=== PATIENT | male | born 1945 | race American Indian/Alaskan Native ===

== ENCOUNTER 2020-12-26 12:45 | Inpatient (IN) | payer MEDICARE ==
[2020-12-26] MEDS ORDERED: KETOROLAC 30 MG/1 ML INJ IV ONE (13:18)
[2020-12-26] MEDS ORDERED: HYDROmorphone 1 MG/1 ML INJ IV ONE (13:18)
[2020-12-26] MEDS ORDERED: ONDANSETRON 4 MG/2 ML INJ IV ONE (13:18)
--- NOTE | 2020-12-26 13:25 | Emergency Department Report ---
ED Fall HPI - General Stated Complaint: HIP PAIN Time Seen by Provider: 12/26/20 12:54 Source: patient Mode of arrival: Stretcher Limitations: No Limitations - History of Present Illness Initial Comments: 75-year-old male with a past medical history of bladder cancer (currently in remission), hypertension, elevated cholesterol, CAD with stent placement, and generalized joint pain presents to the hospital complaints of lower back pain and right hip pain since fall x1 week. 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 Since he has had several falls last fall last night. Patient is unsure if he passed out after recent fall. He is complaining of severe lower back and right hip pain worse with movement and palpation. Patient currently takes hydrocodone 5 mg without relief. Difficulty ambulating secondary to pain. He denies bowel or bladder incontinence. Patient was seen at [facility] yesterday had x-rays of the hip and back with without identifiable fracture. I received call from patient's PMD Dr. Garcia prior to patient's arrival expressing his concern of patient's debility and pain need for further work-up, treatment, and possible rehab placement Patient has orthopedic surgical history of metal plate in the neck, right hip replacement, left hip fusion, and bilateral knee replacements Bladder cancer was treated with resection. No history of chemoradiation. Has a scheduled cystoscopy appointment for December 29 - Related Data Home Medications Medication Instructions Recorded Confirmed Last Taken Amlodipine Besylate [Norvasc] 10 mg PO QDAY 12/26/20 12/26/20 12/26/20 AtorvaSTATin [Lipitor] 40 mg PO QHS 12/26/20 12/26/20 12/26/20 Gabapentin [Neurontin] 600 mg PO BID 12/26/20 12/26/20 12/26/20 HYDROcodone/APAP 10-325 [[place] 1 each PO Q8HR PRN 12/26/20 12/26/20 12/26/20 10/325] Metoprolol Xl [Metoprolol 50 mg PO QDAY 12/26/20 12/26/20 12/26/20 SUCCINATE ER TAB] Omeprazole Magnesium [PriLOSEC Otc] 20 mg PO QDAY 12/26/20 12/26/20 12/26/20 Tamsulosin [Flomax] 0.4 mg PO QDAY 12/26/20 12/26/20 12/26/20 lisinopriL [Zestril TAB] 40 mg PO QDAY 12/26/20 12/26/20 12/26/20 Allergies Allergy/AdvReac Type Severity Reaction Status Date / Time No Known Allergies Allergy Verified 12/26/20 12:59 ED Review of Systems ROS: Stated complaint: HIP PAIN Other details as noted in HPI Comment: All other systems reviewed and negative ED Past Medical Hx - Past Medical History Hx of Cancer: Yes (Bladder) - Surgical History Hx Coronary Stent: Yes Additional Surgical History: Bilateral knee replacement, left hip fusion, right hip replacement - Medications Home Medications: Home Medications Medication Instructions Recorded Confirmed Last Taken Type Amlodipine Besylate [Norvasc] 10 mg PO QDAY 12/26/20 12/26/20 12/26/20 History AtorvaSTATin [Lipitor] 40 mg PO QHS 12/26/20 12/26/20 12/26/20 History Gabapentin [Neurontin] 600 mg PO BID 12/26/20 12/26/20 12/26/20 History HYDROcodone/APAP 10-325 [[place] 1 each PO Q8HR PRN 12/26/20 12/26/20 12/26/20 History 10/325] Metoprolol Xl [Metoprolol 50 mg PO QDAY 12/26/20 12/26/20 12/26/20 History SUCCINATE ER TAB] Omeprazole Magnesium [PriLOSEC Otc] 20 mg PO QDAY 12/26/20 12/26/20 12/26/20 History Tamsulosin [Flomax] 0.4 mg PO QDAY 12/26/20 12/26/20 12/26/20 History lisinopriL [Zestril TAB] 40 mg PO QDAY 12/26/20 12/26/20 12/26/20 History ED Physical Exam - Other Other exam information: General: No acute distress Head: Atraumatic Eyes: normal appearance ENT: Moist mucous membranes Neck: Normal appearance, no midline tenderness Chest: Clear to auscultation bilaterally CV: Regular rate and rhythm Abdomen: Soft, normal bowel sounds, nontender, nondistended, no rebound or guarding Back: Normal inspection Extremity: Normal inspection, full range of motion Neuro: Alert O x 3, no facial asymmetry, speech clear, no gross motor sensory deficit Psych: Appropriate behavior Skin: No rash ED Course Vital Signs 12/26/20 12/26/20 12/26/20 12:56 12:59 13:00 Temperature 98.7 F Pulse Rate 52 L 49 L Respiratory 12 11 L Rate Blood Pressure 202/74 Blood Pressure 211/85 [Right] O2 Sat by Pulse 93 95 92 Oximetry 12/26/20 12/26/20 12/26/20 13:16 13:30 13:46 Temperature Pulse Rate 74 49 L 53 L Respiratory 13 16 17 Rate Blood Pressure 211/85 165/84 Blood Pressure [Right] O2 Sat by Pulse 96 93 91 Oximetry 12/26/20 12/26/20 13:50 14:14 Temperature Pulse Rate 55 L Respiratory 16 Rate Blood Pressure 165/84 Blood Pressure [Right] O2 Sat by Pulse 95 94 Oximetry - Reevaluation(s) Reevaluation #1: 12/26/20 15:22 Patient reports significant pain relief after receiving Dilaudid 0.5 mg and Toradol 15 mg IV ED Medical Decision Making - Lab Data Result diagrams: 12/26/20 13:45 12/26/20 13:45 Lab Results 12/26/20 12/26/20 12/26/20 Range/Units 13:45 13:45 14:04 WBC 5.2 (4.5-11.0) K/mm3 RBC 5.43 H (3.65-5.03) M/mm3 Hgb 14.2 (11.8-15.2) gm/dl Hct 42.3 (35.5-45.6) % MCV 78 L (84-94) fl MCH 26 L (28-32) pg MCHC 34 (32-34) % RDW 15.3 H (13.2-15.2) % Plt Count 143 (140-440) K/mm3 Lymph % (Auto) 30.6 (13.4-35.0) % [place] % (Auto) 8.2 H (0.0-7.3) % Eos % (Auto) 4.8 H (0.0-4.3) % Baso % (Auto) 0.9 (0.0-1.8) % Lymph # (Auto) 1.6 (1.2-5.4) K/mm3 [place] # (Auto) 0.4 (0.0-0.8) K/mm3 Eos # (Auto) 0.3 (0.0-0.4) K/mm3 Baso # (Auto) 0.0 (0.0-0.1) K/mm3 Seg Neutrophils % 55.5 (40.0-70.0) % Seg Neutrophils # 2.9 (1.8-7.7) K/mm3 Sodium 135 L (137-145) mmol/L Potassium 4.1 (3.6-5.0) mmol/L Chloride 98.7 (98-107) mmol/L Carbon Dioxide 22 (22-30) mmol/L Anion Gap 18 mmol/L BUN 15 (9-20) mg/dL Creatinine 0.8 (0.8-1.3) mg/dL Estimated GFR > 60 ml/min BUN/Creatinine Ratio 19 % Glucose 98 (75-100) mg/dL Calcium 8.9 (8.4-10.2) mg/dL Total Bilirubin 1.60 H (0.1-1.2) mg/dL AST 19 (5-40) units/L ALT 16 (7-56) units/L Alkaline Phosphatase 141 H (35-129) units/L Total Creatine Kinase 187 H (55-170) units/L Total Protein 7.6 (6.3-8.2) g/dL Albumin 3.7 L (3.9-5) g/dL Albumin/Globulin Ratio 0.9 % Urine Color Yellow (Yellow) Urine Turbidity Clear (Clear) Urine pH 6.0 (5.0-7.0) Ur Specific [place] 1.010 (1.003-1.030) Urine Protein 100 mg/dl (Negative) mg/dL Urine Glucose (UA) Negative (Negative) mg/dL Urine Ketones Trace (Negative) mg/dL Urine Blood Small A (Negative) Urine Nitrite Negative (Negative) Ur Reducing Substances Not Reportable Urine Bilirubin Negative (Negative) Urine Ictotest Not Reportable Urine Urobilinogen Not Reportable Ur Leukocyte Esterase Negative (Negative) Urine WBC (Auto) 1.0 (0.0-6.0) /HPF Urine RBC (Auto) 2.0 (0.0-6.0) /HPF U Epithel Cells (Auto) < 1.0 (0-13.0) /HPF Urine Mucus Few /HPF - Radiology Data Radiology results: report reviewed CT HEAD WITHOUT CONTRAST INDICATION / CLINICAL INFORMATION: fall, loc. TECHNIQUE: All CT scans at this location are performed using CT dose reduction for ALARA by means of automated exposure control. COMPARISON: None available. FINDINGS: HEMORRHAGE: None. EXTRA-AXIAL SPACES: Mildly prominent likely related to cortical atrophy. VENTRICULAR SYSTEM: Normal in size and morphology for the patient's age. CEREBRAL PARENCHYMA: There are periventricular hypodensities consistent with microvascular ischemic change. No acute territorial infarct. MIDLINE SHIFT / HERNIATION: None. CEREBELLUM / BRAINSTEM: No significant abnormality. ORBITS: Normal as visualized SOFT TISSUES: No significant abnormality. SKULL: No significant abnormality. PARANASAL SINUSES / MASTOID AIR CELLS: Normal as visualized ADDITIONAL FINDINGS: None. IMPRESSION: 1. No acute intracranial abnormality in the setting of senescent changes. CT LUMBAR SPINE WITHOUT CONTRAST INDICATION / CLINICAL INFORMATION: back pain s/p fall. TECHNIQUE: Axial CT images were obtained through the lumbar spine. Sagittal and coronal reformatted images were produced. All CT scans at this location are performed using CT dose reduction for ALARA by means of automated exposure control. COMPARISON: None available. FINDINGS: VERTEBRAE: Prominent osteophytes are scattered throughout the lumbar spine. The right lateral superior osteophyte of L1 is fractured without displacement. ALIGNMENT: There is a slight dextroconvex curvature of the lumbar spine. There is minimal retrolisthesis of L1 on L2 and L2 on L3. DISC SPACES: There is scattered degenerative disc disease throughout the lumbar spine with near- complete disc height loss at L2-L3, L1-L2. There is also degenerative disc disease at T12-L1 greater than L3-L4 greater than L4-L5. FACET JOINTS: There is marked degenerative facet disease throughout the lumbar spine, most pronounced at L5-S1. SPINAL CANAL: No significant abnormality. SACRUM:No significant abnormality of the visualized sacrum. PARASPINAL SOFT TISSUES: No significant abnormality. ADDITIONAL FINDINGS: None. IMPRESSION: 1. There is a nondisplaced fracture through an osteophyte involving the right superolateral endplate of L1. Otherwise no acute fracture. 2. Scattered degenerative disc and facet disease as above. CT PELVIS WITHOUT CONTRAST INDICATION / CLINICAL INFORMATION: right hip pain s/p fall. TECHNIQUE: Axial CT images were obtained through the pelvis without contrast. All CT scans at this location are performed using CT dose reduction for ALARA by means of automated exposure control. COMPARISON: None available. FINDINGS: BOWEL: No significant abnormality. APPENDIX: No significant abnormality. PERITONEUM: No free fluid. No free air. No fluid collection. LYMPH NODES: No significant adenopathy. ARTERIES: Moderate atherosclerotic calcification without acute abnormality. VEINS: No significant abnormality. URINARY BLADDER: No significant abnormality. REPRODUCTIVE ORGANS: No significant abnormality. ADDITIONAL FINDINGS: None SKELETAL SYSTEM: No acute osseous abnormality. There is complete osseous fusion of the left femoral acetabular joint. Patient is status post right total hip arthroplasty. There is scattered degenerative disc and facet disease of the lower lumbar spine. IMPRESSION: 1. No acute abnormality of the pelvis. 2. Other findings as above. - Medical Decision Making 75-year-old male presents to the hospital with 1 week of severe back pain with difficulty ambulating and frequent falls. Pain started after initial trip and fall while pressure washing [address] head, pelvis, and lumbar spine were performed. CT lumbar spine significant for significant degenerative changes including a nondisplaced L1 osteophyte fracture. Patient taking hydrocodone 5 mg at home without improvement. Labs and urine unremarkable with exception of hematuria which is likely chronic given patient's history of bladder cancer. He is scheduled for outpatient work-up. Cystoscopy with his urologist. Patient will be admitted to the hospital service for further management. No acute neurologic findings on examination. Dr. Garcia updated regarding results. Hospitalist informed for admission Critical Care Time: No Critical care attestation.: If time is entered above; I have spent that time in minutes in the direct care of this critically ill patient, excluding procedure time. ED Disposition Clinical Impression: Disc degeneration, lumbar, Right hip pain, Intractable back pain L1 vertebral fracture Qualifiers: Encounter type: subsequent encounter Fracture type: closed Fracture morphology: other fracture Disposition: 09 ADMITTED INPATIENT Is pt being admited?: Yes Condition: Stable Referrals: PRIMARY CARE, [Primary Care Provider] - 3-5 Days Time of Disposition: 15:14 (Dr Killian/hospitalist)
[2020-12-26 14:20] LABS: Alanine Aminotransferase 16 units/L (7-56); Albumin 3.7 g/dL (3.9-5); BUN/Creatinine Ratio 19; Blood Urea Nitrogen 15 mg/dL (9-20); Calcium 8.9 mg/dL (8.4-10.2); Hemolysis Index 9
--- NOTE | 2020-12-26 14:31 | Cat Scan Report ---
CT HEAD WITHOUT CONTRAST INDICATION / CLINICAL INFORMATION: fall, loc. TECHNIQUE: All CT scans at this location are performed using CT dose reduction for ALARA by means of automated exposure control. COMPARISON: None available. FINDINGS: HEMORRHAGE: None. EXTRA-AXIAL SPACES: Mildly prominent likely related to cortical atrophy. VENTRICULAR SYSTEM: Normal in size and morphology for the patient's age. CEREBRAL PARENCHYMA: There are periventricular hypodensities consistent with microvascular ischemic c hange. No acute territorial infarct. MIDLINE SHIFT / HERNIATION: None. CEREBELLUM / BRAINSTEM: No significant abnormality. ORBITS: Normal as visualized SOFT TISSUES: No significant abnormality. SKULL: No significant abnormality. PARANASAL SINUSES / MASTOID AIR CELLS: Normal as visualized ADDITIONAL FINDINGS: None. IMPRESSION: 1. No acute intracranial abnormality in the setting of senescent changes. Signer Name: Yuri Blackburn DO Signed: 12/26/2020 2:27 PM Workstation Name: [id number]
[2020-12-26 14:38] LABS: Hematocrit 42.3 % (35.5-45.6); Hemoglobin 14.2 gm/dl (11.8-15.2); Mean Corpuscular HGB Conc 34 % (32-34); Mean Corpuscular Volume 78 fl (84-94); Red Blood Count 5.43 M/mm3 (3.65-5.03); Red Cell Distribution Width 15.3 % (13.2-15.2)
[2020-12-26 14:39] LABS: Basophils % (Auto) 0.9 % (0.0-1.8); Eosinophils # (Auto) 0.3 K/mm3 (0.0-0.4); Eosinophils % (Auto) 4.8 % (0.0-4.3); Lymphocytes # (Auto) 1.6 K/mm3 (1.2-5.4); Lymphocytes % (Auto) 30.6 % (13.4-35.0); Monocytes # (Auto) 0.4 K/mm3 (0.0-0.8); Monocytes % (Auto) 8.2 % (0.0-7.3); Platelet Count 143 K/mm3 (140-440)
--- NOTE | 2020-12-26 14:53 | Cat Scan Report ---
CT LUMBAR SPINE WITHOUT CONTRAST INDICATION / CLINICAL INFORMATION: back pain s/p fall. TECHNIQUE: Axial CT images were obtained through the lumbar spine. Sagittal and coronal reformatted i mages were produced. All CT scans at this location are performed using CT dose reduction for ALARA by means of automated exposure control. COMPARISON: None available. FINDINGS: VERTEBRAE: Prominent osteophytes are scattered throughout the lumbar spine. The right lateral superio r osteophyte of L1 is fractured without displacement. ALIGNMENT: There is a slight dextroconvex curvature of the lumbar spine. There is minimal retrolisthe sis of L1 on L2 and L2 on L3. DISC SPACES: There is scattered degenerative disc disease throughout the lumbar spine with near-compl ete disc height loss at L2-L3, L1-L2. There is also degenerative disc disease at T12-L1 greater than L3-L4 greater than L4-L5. FACET JOINTS: There is marked degenerative facet disease throughout the lumbar spine, most pronounced at L5-S1. SPINAL CANAL: No significant abnormality. SACRUM:No significant abnormality of the visualized sacrum. PARASPINAL SOFT TISSUES: No significant abnormality. ADDITIONAL FINDINGS: None. IMPRESSION: 1. There is a nondisplaced fracture through an osteophyte involving the right superolateral endplate of L1. Otherwise no acute fracture. 2. Scattered degenerative disc and facet disease as above. Signer Name: Yuri Blackburn DO Signed: 12/26/2020 2:48 PM Workstation Name: [id number]
[2020-12-26 14:54] LABS: Mucus,Urine FEW /HPF
--- NOTE | 2020-12-26 14:55 | Cat Scan Report ---
CT PELVIS WITHOUT CONTRAST INDICATION / CLINICAL INFORMATION: right hip pain s/p fall. TECHNIQUE: Axial CT images were obtained through the pelvis without contrast. All CT scans [facility] are performed using CT dose reduction for ALARA by means of automated exposure control. COMPARISON: None available. FINDINGS: BOWEL: No significant abnormality. APPENDIX: No significant abnormality. PERITONEUM: No free fluid. No free air. No fluid collection. LYMPH NODES: No significant adenopathy. ARTERIES: Moderate atherosclerotic calcification without acute abnormality. VEINS: No significant abnormality. URINARY BLADDER: No significant abnormality. REPRODUCTIVE ORGANS: No significant abnormality. ADDITIONAL FINDINGS: None SKELETAL SYSTEM: No acute osseous abnormality. There is complete osseous fusion of the left femoral a cetabular joint. Patient is status post right total hip arthroplasty. There is scattered degenerative disc and facet disease of the lower lumbar spine. IMPRESSION: 1. No acute abnormality of the pelvis. 2. Other findings as above. Signer Name: Yuri Blackburn DO Signed: 12/26/2020 2:51 PM Workstation Name: [id number]
[2020-12-26 15:08] LABS: Bilirubin,Urine Negative (Negative); Blood,Urine Small (Negative); Color,Urine Yellow (Yellow)
--- NOTE | 2020-12-26 15:17 | History and Physical Report ---
History of Present Illness Chief complaint: My back hurts so bad History of present illness: 75 YO Male with Bladder Cancer, HTN, HLD, CAD S/P Stent Placement, BPH, OA, GERD, Obesity, Chronic Pain Syndrome presents to ED for evaluation. Patient reports "my back hurts so bad". Patient states that he has experienced severe low back pain over the past 1 week with persistent and worsening symptoms over the same timeframe. Patient states that symptoms began shortly after a fall 1 week ago. Patient has experienced multiple falls during the ensuing week. Patient said that pain is 10/10, constant, worsened with ambulation, relieved with rest. Radiates down the leg. Patient is currently bedbound, nonambulatory, and unable to bear weight due to the pain. EMS was notified and upon arrival the patient was found to be in distress and subsequently transported to [facility] for further care and evaluation of the aforementioned symptoms. The patient was seen and evaluated in the emergency department. All lab and imaging studies reviewed. Patient found to have a lumbar spine fracture. Patient admitted to medical floor due to increased risk of worsening symptoms. Patient initiated on pain management protocol. No reports of fever, chills, chest pain, palpitation, unilateral leg swelling, calf pain, prolonged t ravel, shortness of breath, individual/family history of DVT/PE/bleeding/blood clotting disorders, or known exposure to COVID-19. No prior admission for review. All medication listed at time of admission has been reconciled. Advanced care planning conducted in ED. Past History Past Medical History: arthritis, CAD, cancer, GERD, hypertension, hyperlipidemia Past Surgical History: total hip replacement, total knee replacement Social history: , lives with family. denies: smoking, alcohol abuse, p rescription drug abuse Family history: diabetes, hypertension Medications and Allergies Allergies Allergy/AdvReac Type Severity Reaction Status Date / Time No Known Allergies Allergy Verified 12/26/20 12:59 Home Medications Medication Instructions Recorded Confirmed Last Taken Type Amlodipine Besylate [Norvasc] 10 mg PO QDAY 12/26/20 12/26/20 12/26/20 History AtorvaSTATin [Lipitor] 40 mg PO QHS 12/26/20 12/26/20 12/26/20 History Gabapentin [Neurontin] 600 mg PO BID 12/26/20 12/26/20 12/26/20 History HYDROcodone/APAP 10-325 [[place] 1 each PO Q8HR PRN 12/26/20 12/26/20 12/26/20 History 10/325] Metoprolol Xl [Metoprolol 50 mg PO QDAY 12/26/20 12/26/20 12/26/20 History SUCCINATE ER TAB] Omeprazole Magnesium [PriLOSEC Otc] 20 mg PO QDAY 12/26/20 12/26/20 12/26/20 History Tamsulosin [Flomax] 0.4 mg PO QDAY 12/26/20 12/26/20 12/26/20 History lisinopriL [Zestril TAB] 40 mg PO QDAY 12/26/20 12/26/20 12/26/20 History Review of Systems Constitutional: weakness, no weight loss, no weight gain, no fever, no chills Ears, nose, mouth and throat: no ear pain, no ear discharge, no decreased hea ring Cardiovascular: no chest pain, no palpitations, no edema, no syncope Respiratory: no cough, no cough with sputum, no hemoptysis, no shortness of breath Gastrointestinal: no abdominal pain, no nausea, no vomiting, no constipation, no change in bowel habits Genitourinary Male: no hematuria, no flank pain, no discharge, no urinary frequency, no urinary hesitancy Rectal: no pain, no incontinence, no bleeding Musculoskeletal: shooting leg pain, limitation of motion, frequent falls, arthritis, other (Back pain), no neck stiffness, no neck pain, no shooting arm pain Integumentary: no rash, no pruritis, no redness, no sores, no wounds Neurological: no head injury, no transient paralysis, no weakness, no parathesias, no numbness, no tingling, no seizures Psychiatric: no anxiety, no change in sleep habits, no sleep disturbances, no change in appetite, no change in libido, no suicidal ideation Endocrine: no cold intolerance, no polyphagia, no polydipsia, no nocturia, no excessive sweating Hematologic/Lymphatic: no easy bruising, no easy bleeding, no lymphadenopathy Allergic/Immunologic: no urticaria, no allergic rhinitis, no wheezing, no persistent infections, no angioedema Exam - Constitutional Vitals: Temp Pulse Resp BP Pulse Ox 98.7 F 55 L 16 165/84 94 12/26/20 12:59 12/26/20 14:14 12/26/20 14:14 12/26/20 14:14 12/26/20 14:14 General appearance: Present: mild distress, obese - EENT Eyes: Present: PERRL ENT: hearing intact, clear oral mucosa - Neck Neck: Present: supple, normal ROM - Respiratory Respiratory effort: normal Respiratory: bilateral: CTA - Cardiovascular Heart Sounds: Present: S1 & S2. Absent: rub, click - Extremities Extremities: pulses symmetrical, No edema Extremity abnormal: tenderness (Lumbar spine tenderness) Peripheral Pulses: within normal limits - Abdominal General gastrointestinal: Present: soft, non-tender, non-distended, normal bowel sounds Male genitourinary: Present: normal - Integumentary Integumentary: Present: clear, warm, dry - Musculoskeletal Musculoskeletal: generalized weakness - Psychiatric Psychiatric: appropriate mood/affect, intact judgment & insight - Neurologic Neurologic: CNII-XII intact, moves all extremities, no gait normal Results - Labs CBC & Chem 7: 12/26/20 13:45 12/26/20 13:45 Labs: Abnormal lab results 12/26/20 12/26/20 12/26/20 Range/Units 13:45 13:45 14:04 RBC 5.43 H (3.65-5.03) M/mm3 MCV 78 L (84-94) fl MCH 26 L (28-32) pg RDW 15.3 H (13.2-15.2) % [place] % (Auto) 8.2 H (0.0-7.3) % Eos % (Auto) 4.8 H (0.0-4.3) % Sodium 135 L (137-145) mmol/L Total Bilirubin 1.60 H (0.1-1.2) mg/dL Alkaline Phosphatase 141 H (35-129) units/L Total Creatine Kinase 187 H (55-170) units/L Albumin 3.7 L (3.9-5) g/dL Urine Blood Small A (Negative) Assessment and Plan - Patient Problems (1) L1 vertebral fracture Current Visit: Yes Status: Acute Qualifiers: Encounter type: subsequent encounter Fracture type: closed Fracture morphology: other fracture Plan to address problem: Lumbar spine x-ray, pain management, supportive care, LSO brace after physical therapy feeding, supportive care. Case management consult for snf facility/rehab placement. (2) Obesity Current Visit: Yes Status: Acute Qualifiers: Body mass index: BMI 31.0-31.9 Plan to address problem: Balanced diet, increase physical activity at discharge, outpatient pulmonary follow-up as outpatient for sleep study. (3) Debility Current Visit: Yes Status: Acute Plan to address problem: Physical therapy consulted, supportive care, pain management. (4) Intractable back pain Current Visit: Yes Status: Acute Plan to address problem: Pain management protocol, supportive care, LSO brace as per physical therapy (5) Hypertension Current Visit: Yes Status: Acute Qualifiers: Hypertension type: primary hypertension Qualified Code(s): I10 - Essential (primary) hypertension Plan to address problem: Monitor blood pressure every shift, continue medical management. (6) Hyperlipidemia Current Visit: Yes Status: Acute Qualifiers: Hyperlipidemia type: mixed hyperlipidemia Qualified Code(s): E78.2 - Mixed hyperlipidemia Plan to address problem: Low-cholesterol diet, supportive care, lipid panel as outpatient. (7) GERD (gastroesophageal reflux disease) Current Visit: Yes Status: Acute Qualifiers: Esophagitis presence: without esophagitis Qualified Code(s): K21.9 - Gastro-esophageal reflux disease without esophagitis Plan to address problem: PPI therapy, supportive care (8) Chronic pain syndrome Current Visit: Yes Status: Acute Plan to address problem: Pain assessment as per routine, continue pain management as per protocol. (9) DVT prophylaxis Current Visit: Yes Status: Acute Plan to address problem: SCD to bilateral lower extremities while in bed, prophylactic anticoagulation (10) Advance care planning Current Visit: Yes Status: Acute Plan to address problem: Disease education conducted, care plan discussed, diagnoses discussed, prognosis discussed, patient is full code, patient and his knowledge understanding and agreement with care plan, +30 minutes.
[2020-12-26] MEDS ORDERED: ACETAMINOPHEN 325 MG TAB PO PRN (15:20)
[2020-12-26] MEDS ORDERED: HYDROmorphone 1 MG/1 ML INJ IV PRN (15:20)
[2020-12-26] MEDS ORDERED: ONDANSETRON 4 MG/2 ML INJ IV PRN (15:20)
[2020-12-26] MEDS: GABAPENTIN 300 MG CAP PO SCH (21:20)
[2020-12-26] MEDS: FAMOTIDINE 20 MG TAB PO SCH (21:20)
[2020-12-26] MEDS: HEPARIN 5,000 UNIT/1 ML VIAL SUB-Q SCH (21:20)
[2020-12-26] MEDS: hydrALAZINE 20 MG/1 ML INJ IV PRN (21:29)
[2020-12-26] MEDS: oxyCODONE /ACETAMINOPHEN 5-325MG TAB PO PRN (21:34)
[2020-12-26] MEDS ORDERED: NON-FORMULARY EACH (Gabapentin [Neurontin] 600 MG Tablet) PO SCH (22:00)
[2020-12-27] MEDS: hydrALAZINE 20 MG/1 ML INJ IV PRN (06:32)
[2020-12-27 07:01] LABS: BUN/Creatinine Ratio 23; Blood Urea Nitrogen 21 mg/dL (9-20); Calcium 8.5 mg/dL (8.4-10.2); Hemolysis Index 9
[2020-12-27] MEDS: HYDROcodone/ACETAMINOPHEN 10-325MG TAB PO PRN ×2 (09:14→22:55)
[2020-12-27] MEDS: FAMOTIDINE 20 MG TAB PO SCH ×2 (09:16→21:32)
[2020-12-27] MEDS: METOPROLOL SUCCINATE XL 50 MG TAB PO SCH (09:16)
[2020-12-27] MEDS: HEPARIN 5,000 UNIT/1 ML VIAL SUB-Q SCH ×2 (09:16→21:32)
[2020-12-27] MEDS: amLODIPine 5 MG TAB PO SCH (09:16)
[2020-12-27] MEDS: PANTOPRAZOLE 20 MG TAB PO SCH (09:16)
[2020-12-27] MEDS: GABAPENTIN 300 MG CAP PO SCH ×2 (09:16→21:32)
[2020-12-27] MEDS: TAMSULOSIN 0.4 MG CAP PO SCH (09:16)
[2020-12-27] MEDS: LISINOPRIL 40 MG TAB PO SCH (09:16)
[2020-12-27] MEDS ORDERED: NON-FORMULARY EACH (Omeprazole Magnesium [Prilosec Otc] 20 MG Tablet.Dr) PO SCH (10:00)
--- NOTE | 2020-12-27 17:03 | Magnetic Resonance Report ---
MRI LUMBAR SPINE 12/27/2020 INDICATION / CLINICAL INFORMATION: Low back pain, fall. COMPARISON: CT lumbar spine 12/26/2020 FINDINGS: GENERAL OBSERVATIONS: Unenhanced MR images of the lumbar spine were obtained. Diffuse degenerative disc and facet changes are present throughout the lumbar spine, superimposed on a developmentally narrow canal. There is right convex scoliosis centered at the thoracolumbar junctio n. On the prior CT scan, linear lucency was associated with a right osteophyte at the L1 level. At this level, there is some evidence of associated soft tissue edema, which may indicate that this is an acu te osteophyte fracture. This does not cause any impingement upon the canal or neural foramina in this location. [id number] ANALYSIS: L5-S1: Moderate diffuse disc bulging and facet degenerative changes, right greater than left. There i s significant right-sided foraminal narrowing. L4-5: Prominent diffuse disc bulging and facet degenerative changes result in severe central canal st enosis and bilateral foraminal narrowing, left greater than right. L2-3: Moderate diffuse disc bulging and facet degenerative changes are present resulting in severe ca nal stenosis. Bilateral foraminal narrowing is present, left greater than right. L2-3: Near-complete loss of disc space associated with disc bulging. Moderate central canal narrowing and bilateral foraminal encroachment. L1-2: Moderate diffuse disc bulging and mild facet degenerative changes. Moderately severe central ca nal narrowing. T12-L1: Moderate diffuse disc bulging. Right-sided foraminal narrowing. BONE MARROW: Extensive degenerative bone marrow signal changes throughout the lumbar spine. SPINAL CORD/CAUDA EQUINA: Distal spinal cord is unremarkable. IMPRESSION: 1. Prominent multilevel degenerative disc and facet changes as detailed above. 2. Soft tissue edema associated with the position of osteophyte linear lucency seen on CT scan from 1 02/26/2020. Signer Name: Fam Mcallister MD Signed: 12/27/2020 4:58 PM Workstation Name: [id number]
[2020-12-27] MEDS: oxyCODONE /ACETAMINOPHEN 5-325MG TAB PO PRN (17:09)
--- NOTE | 2020-12-27 17:42 | Progress Note ---
Assessment and Plan Assessment and plan: 75 YO Male with Bladder Cancer, HTN, HLD, CAD S/P Stent Placement, BPH, OA, GERD, Obesity, Chronic Pain Syndrome presents to ED for evaluation. Patient reports "my back hurts so bad". Patient states that he has experienced severe low back pain over the past 1 week with persistent and worsening symptoms over the same timeframe. Patient states that symptoms began shortly after a fall 1 week ago. Patient has experienced multiple falls during the ensuing week. Patient said that pain is 10/10, constant, worsened with ambulation, relieved with rest. Radiates down the leg. Patient is currently bedbound, nonambulatory, and unable to bear weight due to the pain. EMS was notified and upon arrival the patient was found to be in distress. Patient found to have a lumbar spine fracture. (1) lumbago with L1 vertebral fracture post fall 1 week ago Current Visit: Yes Status: Acute Qualifiers: Encounter type: subsequent encounter Fracture type: closed Fracture morphology: other fracture Plan to address problem: MRI, PT/OT evaluation and orthopedic consult ordered. Possible a candidate for vertebroplasty/kyphoplasty Continue current pain management (2) Obesity Current Visit: Yes Status: Acute Qualifiers: Body mass index: BMI 31.0-31.9 Plan to address problem: Balanced diet, increase physical activity at discharge, outpatient pulmonary follow-up as outpatient for sleep study. (3) history of CAD with stent Current Visit: Yes Status: Acute Plan to address problem: Clinically stable (4) history of bladder cancer, appears noninvasive Current Visit: Yes Status: Acute Plan to address problem: Being followed by urology (5) Hypertension Current Visit: Yes Status: Acute Qualifiers: Hypertension type: primary hypertension Qualified Code(s): I10 - Essential (primary) hypertension Plan to address problem: Monitor blood pressure every shift, continue medical management. (6) history of recurrent falls Patient reports losing balance/tripping causing falls. Recurrent but not very frequent. Fell twice during this month. PT/OT evaluation pending. Order MRI of lumbar spine. May need MRI of C-spine also. (7) GERD (gastroesophageal reflux disease) Current Visit: Yes Status: Acute Qualifiers: Esophagitis presence: without esophagitis Qualified Code(s): K21.9 - Gastro-esophageal reflux disease without esophagitis Plan to address problem: PPI therapy, supportive care (8) Chronic pain syndrome Current Visit: Yes Status: Acute Plan to address problem: Pain assessment as per routine, continue pain management as per protocol. (9) DVT prophylaxis Current Visit: Yes Status: Acute Plan to address problem: SCD to bilateral lower extremities while in bed, prophylactic anticoagulation Discussed with patient, nursing staff and home health care case manager History Interval history: Patient reports having low back pain without much radiation. Reports that this is new since felt related. Worse with ambulation. Patient denies no bladder or bowel dysfunction. MRI and orthopedic consult ordered. Hospitalist Physical - Constitutional Vitals: Temp Pulse Resp BP Pulse Ox 98.5 F 58 L 18 137/65 96 12/27/20 11:32 12/27/20 11:32 12/27/20 11:32 12/27/20 11:32 12/27/20 11:32 General appearance: Present: no acute distress, obese - EENT Eyes: Present: PERRL, EOM intact ENT: hearing decreased - Neck Neck: Present: supple - Respiratory Respiratory effort: normal Respiratory: bilateral: CTA, diminished - Cardiovascular Rhythm: regular - Extremities Extremities: No edema Extremity abnormal: other (Tender over L1. Left straight leg raising test is diminished.) - Abdominal General gastrointestinal: soft, non-tender - Integumentary Integumentary: Absent: rash - Psychiatric Psychiatric: appropriate mood/affect - Neurologic Neurologic: no focal deficits, other (Left straight leg raise test is dim inished) Results - Labs CBC & Chem 7: 12/26/20 13:45 12/27/20 06:18 Labs: Laboratory Last Values WBC 5.2 K/mm3 (4.5-11.0) 12/26/20 13:45 RBC 5.43 M/mm3 (3.65-5.03) H 12/26/20 13:45 Hgb 14.2 gm/dl (11.8-15.2) 12/26/20 13:45 Hct 42.3 % (35.5-45.6) 12/26/20 13:45 MCV 78 fl (84-94) L 12/26/20 13:45 MCH 26 pg (28-32) L 12/26/20 13:45 MCHC 34 % (32-34) 12/26/20 13:45 RDW 15.3 % (13.2-15.2) H 12/26/20 13:45 Plt Count 143 K/mm3 (140-440) 12/26/20 13:45 Lymph % (Auto) 30.6 % (13.4-35.0) 12/26/20 13:45 [place] % (Auto) 8.2 % (0.0-7.3) H 12/26/20 13:45 Eos % (Auto) 4.8 % (0.0-4.3) H 12/26/20 13:45 Baso % (Auto) 0.9 % (0.0-1.8) 12/26/20 13:45 Lymph # (Auto) 1.6 K/mm3 (1.2-5.4) 12/26/20 13:45 [place] # (Auto) 0.4 K/mm3 (0.0-0.8) 12/26/20 13:45 Eos # (Auto) 0.3 K/mm3 (0.0-0.4) 12/26/20 13:45 Baso # (Auto) 0.0 K/mm3 (0.0-0.1) 12/26/20 13:45 Seg Neutrophils % 55.5 % (40.0-70.0) 12/26/20 13:45 Seg Neutrophils # 2.9 K/mm3 (1.8-7.7) 12/26/20 13:45 Sodium 136 mmol/L (137-145) L 12/27/20 06:18 Potassium 4.2 mmol/L (3.6-5.0) 12/27/20 06:18 Chloride 100.2 mmol/L (98-107) 12/27/20 06:18 Carbon Dioxide 24 mmol/L (22-30) 12/27/20 06:18 Anion Gap 16 mmol/L 12/27/20 06:18 BUN 21 mg/dL (9-20) H 12/27/20 06:18 Creatinine 0.9 mg/dL (0.8-1.3) 12/27/20 06:18 Estimated GFR > 60 ml/min 12/27/20 06:18 BUN/Creatinine Ratio 23 % 12/27/20 06:18 Glucose 135 mg/dL (75-100) H 12/27/20 06:18 Calcium 8.5 mg/dL (8.4-10.2) 12/27/20 06:18 Total Bilirubin 1.60 mg/dL (0.1-1.2) H 12/26/20 13:45 AST 19 units/L (5-40) 12/26/20 13:45 ALT 16 units/L (7-56) 12/26/20 13:45 Alkaline Phosphatase 141 units/L (35-129) H 12/26/20 13:45 Total Creatine Kinase 187 units/L (55-170) H 12/26/20 13:45 Total Protein 7.6 g/dL (6.3-8.2) 12/26/20 13:45 Albumin 3.7 g/dL (3.9-5) L 12/26/20 13:45 Albumin/Globulin Ratio 0.9 % 12/26/20 13:45 Urine Color Yellow (Yellow) 12/26/20 14:04 Urine Turbidity Clear (Clear) 12/26/20 14:04 Urine pH 6.0 (5.0-7.0) 12/26/20 14:04 Ur Specific [place] 1.010 (1.003-1.030) 12/26/20 14:04 Urine Protein 100 mg/dl mg/dL (Negative) 12/26/20 14:04 Urine Glucose (UA) Negative mg/dL (Negative) 12/26/20 14:04 Urine Ketones Trace mg/dL (Negative) 12/26/20 14:04 Urine Blood Small (Negative) A 12/26/20 14:04 Urine Nitrite Negative (Negative) 12/26/20 14:04 Ur Reducing Substances Not Reportable 12/26/20 14:04 Urine Bilirubin Negative (Negative) 12/26/20 14:04 Urine Ictotest Not Reportable 12/26/20 14:04 Urine Urobilinogen Not Reportable 12/26/20 14:04 Ur Leukocyte Esterase Negative (Negative) 12/26/20 14:04 Urine WBC (Auto) 1.0 /HPF (0.0-6.0) 12/26/20 14:04 Urine RBC (Auto) 2.0 /HPF (0.0-6.0) 12/26/20 14:04 U Epithel Cells (Auto) < 1.0 /HPF (0-13.0) 12/26/20 14:04 Urine Mucus Few /HPF 12/26/20 14:04 [place]/IV: Voiding Method Urinal Active Medications - Current Medications Current Medications: Generic Name Dose Route Start Last Admin Trade Name Freq PRN Reason Stop Dose Admin Acetaminophen 650 mg 12/26/20 15:20 Acetaminophen 325 Mg Tab PO Q4H PRN Pain MILD(1-3)/Fever >100.5/RAPHAEL Hydrocodone Bitart/Acetaminophen 1 each 12/26/20 15:23 12/27/20 09:14 Hydrocodone/Acetaminophen 10-325mg Tab PO 1 each Q8HR PRN Administration PAIN Amlodipine Besylate 10 mg 12/27/20 10:00 12/27/20 09:16 Amlodipine 5 Mg Tab PO 10 mg QDAY JULIANNE Administration Atorvastatin Calcium 40 mg 12/26/20 22:00 12/26/20 21:21 Atorvastatin 40 Mg Tab PO 40 mg QHS JULIANNE Administration Famotidine 20 mg 12/26/20 22:00 12/27/20 09:16 Famotidine 20 Mg Tab PO 20 mg BID JULIANNE Administration Gabapentin 600 mg 12/26/20 22:00 12/27/20 09:16 Gabapentin 300 Mg Cap PO 600 mg BID JULIANNE Administration Heparin Sodium (Porcine) 5,000 unit 12/26/20 22:00 12/27/20 09:16 Heparin 5,000 Unit/1 Ml Vial SUB-Q 5,000 unit Q12HR JULIANNE Administration Hydralazine HCl 10 mg 12/26/20 20:16 12/27/20 06:32 Hydralazine 20 Mg/1 Ml Inj IV 10 mg Q6HR PRN Administration Hypertension Hydromorphone HCl 0.5 mg 12/26/20 15:20 12/26/20 19:30 Hydromorphone 1 Mg/1 Ml Inj IV 0.5 mg Q3H PRN Administration Pain , Severe (7-10) Lisinopril 40 mg 12/27/20 10:00 12/27/20 09:16 Lisinopril 40 Mg Tab PO 40 mg QDAY JULIANNE Administration Metoprolol Succinate 50 mg 12/27/20 10:00 12/27/20 09:16 Metoprolol Succinate Xl 50 Mg Tab PO 50 mg QDAY JULIANNE Administration Ondansetron HCl 4 mg 12/26/20 15:20 Ondansetron 4 Mg/2 Ml Inj IV Q8H PRN Nausea And Vomiting Oxycodone/Acetaminophen 1 tab 12/26/20 15:20 12/27/20 17:09 Oxycodone /Acetaminophen 5-325mg Tab PO 1 tab Q6H PRN Administration Pain, Moderate (4-6) Pantoprazole Sodium 20 mg 12/27/20 10:00 12/27/20 09:16 Pantoprazole 20 Mg Tab PO 20 mg QDAY JULIANNE Administration Sodium Chloride 10 ml 12/26/20 22:00 12/27/20 09:16 Sodium Chloride 0.9% 10 Ml Flush Syringe IV 10 ml BID JULIANNE Administration Sodium Chloride 10 ml 12/26/20 15:20 Sodium Chloride 0.9% 10 Ml Flush Syringe IV PRN PRN LINE FLUSH Tamsulosin HCl 0.4 mg 12/27/20 10:00 12/27/20 09:16 Tamsulosin 0.4 Mg Cap PO 0.4 mg QDAY JULIANNE Administration
[2020-12-28] MEDS: TAMSULOSIN 0.4 MG CAP PO SCH (09:57)
[2020-12-28] MEDS: PANTOPRAZOLE 20 MG TAB PO SCH (09:57)
[2020-12-28] MEDS: GABAPENTIN 300 MG CAP PO SCH ×2 (09:57→22:13)
[2020-12-28] MEDS: FAMOTIDINE 20 MG TAB PO SCH ×2 (09:57→22:13)
[2020-12-28] MEDS: amLODIPine 5 MG TAB PO SCH (09:58)
[2020-12-28] MEDS: HEPARIN 5,000 UNIT/1 ML VIAL SUB-Q SCH ×2 (09:59→22:14)
[2020-12-28] MEDS: METOPROLOL SUCCINATE XL 50 MG TAB PO SCH (09:59)
[2020-12-28] MEDS: LISINOPRIL 40 MG TAB PO SCH (09:59)
[2020-12-28] MEDS: oxyCODONE /ACETAMINOPHEN 5-325MG TAB PO PRN ×2 (10:16→22:22)
--- NOTE | 2020-12-28 13:55 | Progress Note ---
Assessment and Plan Assessment and plan: 75 YO Male with Bladder Cancer, HTN, HLD, CAD S/P Stent Placement, BPH, OA, GERD, Obesity, Chronic Pain Syndrome presents to ED for evaluation. Patient reports "my back hurts so bad". Patient states that he has experienced severe low back pain over the past 1 week with persistent and worsening symptoms over the same timeframe. Patient states that symptoms began shortly after a fall 1 week ago. Patient has experienced multiple falls during the ensuing week. Patient said that pain is 10/10, constant, worsened with ambulation, relieved with rest. Radiates down the leg. Patient is currently bedbound, nonambulatory, and unable to bear weight due to the pain. EMS was notified and upon arrival the patient was found to be in distress. Patient found to have a lumbar spine fracture. (1) lumbago with L1 vertebral fracture post fall 1 week ago Current Visit: Yes Status: Acute Qualifiers: Encounter type: subsequent encounter Fracture type: closed Fracture morphology: other fracture Plan to address problem: MRI, PT/OT evaluation and orthopedic consult ordered. Possible a candidate for vertebroplasty/kyphoplasty Continue current pain management (2) Obesity Current Visit: Yes Status: Acute Qualifiers: Body mass index: BMI 31.0-31.9 Plan to address problem: Balanced diet, increase physical activity at discharge, outpatient pulmonary follow-up as outpatient for sleep study. (3) history of CAD with stent Current Visit: Yes Status: Acute Plan to address problem: Clinically stable (4) History of bladder cancer, appears noninvasive Current Visit: Yes Status: Acute Plan to address problem: Being followed by urology (5) Hypertension Current Visit: Yes Status: Acute Qualifiers: Hypertension type: primary hypertension Qualified Code(s): I10 - Essential (primary) hypertension Plan to address problem: Monitor blood pressure every shift, continue medical management. (6) history of recurrent falls Patient reports losing balance/tripping causing falls. Recurrent but not very frequent. Fell twice during this month. PT/OT evaluation pending. Order MRI of lumbar spine. May need MRI of C-spine also. (7) GERD (gastroesophageal reflux disease) Current Visit: Yes Status: Acute Qualifiers: Esophagitis presence: without esophagitis Qualified Code(s): K21.9 - Gastro-esophageal reflux disease without esophagitis Plan to address problem: PPI therapy, supportive care (8) Chronic pain syndrome Current Visit: Yes Status: Acute Plan to address problem: Pain assessment as per routine, continue pain management as per protocol. (9) DVT prophylaxis Current Visit: Yes Status: Acute Plan to address problem: SCD to bilateral lower extremities while in bed, prophylactic anticoagulation Discussed with patient, nursing staff and returned case inspector 12/28: Patient reports having low back pain without much radiation. Still pain with movement. Patient denies no bladder or bowel dysfunction. Awaiting orthopedic consult ordered. MRI pending. Back brace ordered. Anticipate di lyndsayrkeely in am if no further input by surgeon. MRI: IMPRESSION: 1. Prominent multilevel degenerative disc and facet changes as detailed above. 2. Soft tissue edema associated with the position of osteophyte linear lucency seen on CT scan from 12/26/2020. History Interval history: Patient seen and examined, No new complaints except Pain with movement, no parasthesia noted on exam Hospitalist Physical - Physical exam Narrative exam: General appearance: Present: no acute distress, obese - EENT Eyes: Present: PERRL, EOM intact ENT: hearing decreased - Neck Neck: Present: supple - Respiratory Respiratory effort: normal Respiratory: bilateral: CTA, diminished - Cardiovascular Rhythm: regular - Extremities Extremities: No edema Extremity abnormal: other (Tender over L1. Left straight leg raising test is improved.) - Abdominal General gastrointestinal: soft, non-tender - Integumentary Integumentary: Absent: rash - Psychiatric Psychiatric: appropriate mood/affect - Neurologic Neurologic: no focal deficits, other (Left straight leg raise test is improved) - Constitutional Vitals: Temp Pulse Resp BP Pulse Ox 98.3 F 45 L 22 120/59 96 12/28/20 05:43 12/28/20 09:59 12/28/20 10:16 12/28/20 09:59 12/28/20 09:56 General appearance: Present: no acute distress, obese Results - Labs CBC & Chem 7: 12/26/20 13:45 12/27/20 06:18 Labs: Laboratory Last Values WBC 5.2 K/mm3 (4.5-11.0) 12/26/20 13:45 RBC 5.43 M/mm3 (3.65-5.03) H 12/26/20 13:45 Hgb 14.2 gm/dl (11.8-15.2) 12/26/20 13:45 Hct 42.3 % (35.5-45.6) 12/26/20 13:45 MCV 78 fl (84-94) L 12/26/20 13:45 MCH 26 pg (28-32) L 12/26/20 13:45 MCHC 34 % (32-34) 12/26/20 13:45 RDW 15.3 % (13.2-15.2) H 12/26/20 13:45 Plt Count 143 K/mm3 (140-440) 12/26/20 13:45 Lymph % (Auto) 30.6 % (13.4-35.0) 12/26/20 13:45 [place] % (Auto) 8.2 % (0.0-7.3) H 12/26/20 13:45 Eos % (Auto) 4.8 % (0.0-4.3) H 12/26/20 13:45 Baso % (Auto) 0.9 % (0.0-1.8) 12/26/20 13:45 Lymph # (Auto) 1.6 K/mm3 (1.2-5.4) 12/26/20 13:45 [place] # (Auto) 0.4 K/mm3 (0.0-0.8) 12/26/20 13:45 Eos # (Auto) 0.3 K/mm3 (0.0-0.4) 12/26/20 13:45 Baso # (Auto) 0.0 K/mm3 (0.0-0.1) 12/26/20 13:45 Seg Neutrophils % 55.5 % (40.0-70.0) 12/26/20 13:45 Seg Neutrophils # 2.9 K/mm3 (1.8-7.7) 12/26/20 13:45 Sodium 136 mmol/L (137-145) L 12/27/20 06:18 Potassium 4.2 mmol/L (3.6-5.0) 12/27/20 06:18 Chloride 100.2 mmol/L (98-107) 12/27/20 06:18 Carbon Dioxide 24 mmol/L (22-30) 12/27/20 06:18 Anion Gap 16 mmol/L 12/27/20 06:18 BUN 21 mg/dL (9-20) H 12/27/20 06:18 Creatinine 0.9 mg/dL (0.8-1.3) 12/27/20 06:18 Estimated GFR > 60 ml/min 12/27/20 06:18 BUN/Creatinine Ratio 23 % 12/27/20 06:18 Glucose 135 mg/dL (75-100) H 12/27/20 06:18 Calcium 8.5 mg/dL (8.4-10.2) 12/27/20 06:18 Total Bilirubin 1.60 mg/dL (0.1-1.2) H 12/26/20 13:45 AST 19 units/L (5-40) 12/26/20 13:45 ALT 16 units/L (7-56) 12/26/20 13:45 Alkaline Phosphatase 141 units/L (35-129) H 12/26/20 13:45 Total Creatine Kinase 187 units/L (55-170) H 12/26/20 13:45 Total Protein 7.6 g/dL (6.3-8.2) 12/26/20 13:45 Albumin 3.7 g/dL (3.9-5) L 12/26/20 13:45 Albumin/Globulin Ratio 0.9 % 12/26/20 13:45 Urine Color Yellow (Yellow) 12/26/20 14:04 Urine Turbidity Clear (Clear) 12/26/20 14:04 Urine pH 6.0 (5.0-7.0) 12/26/20 14:04 Ur Specific [place] 1.010 (1.003-1.030) 12/26/20 14:04 Urine Protein 100 mg/dl mg/dL (Negative) 12/26/20 14:04 Urine Glucose (UA) Negative mg/dL (Negative) 12/26/20 14:04 Urine Ketones Trace mg/dL (Negative) 12/26/20 14:04 Urine Blood Small (Negative) A 12/26/20 14:04 Urine Nitrite Negative (Negative) 12/26/20 14:04 Ur Reducing Substances Not Reportable 12/26/20 14:04 Urine Bilirubin Negative (Negative) 12/26/20 14:04 Urine Ictotest Not Reportable 12/26/20 14:04 Urine Urobilinogen Not Reportable 12/26/20 14:04 Ur Leukocyte Esterase Negative (Negative) 12/26/20 14:04 Urine WBC (Auto) 1.0 /HPF (0.0-6.0) 12/26/20 14:04 Urine RBC (Auto) 2.0 /HPF (0.0-6.0) 12/26/20 14:04 U Epithel Cells (Auto) < 1.0 /HPF (0-13.0) 12/26/20 14:04 Urine Mucus Few /HPF 12/26/20 14:04 De [place] Fuente/IV: Voiding Method Urinal Active Medications - Current Medications Current Medications: Generic Name Dose Route Start Last Admin Trade Name Freq PRN Reason Stop Dose Admin Acetaminophen 650 mg 12/26/20 15:20 Acetaminophen 325 Mg Tab PO Q4H PRN Pain MILD(1-3)/Fever >100.5/RAPHAEL Hydrocodone Bitart/Acetaminophen 1 each 12/26/20 15:23 12/27/20 22:55 Hydrocodone/Acetaminophen 10-325mg Tab PO 1 each Q8HR PRN Administration PAIN Amlodipine Besylate 10 mg 12/27/20 10:00 12/28/20 09:58 Amlodipine 5 Mg Tab PO 10 mg QDAY JULIANNE Administration Atorvastatin Calcium 40 mg 12/26/20 22:00 12/27/20 21:33 Atorvastatin 40 Mg Tab PO 40 mg QHS JULIANNE Administration Famotidine 20 mg 12/26/20 22:00 12/28/20 09:57 Famotidine 20 Mg Tab PO 20 mg BID JULIANNE Administration Gabapentin 600 mg 12/26/20 22:00 12/28/20 09:57 Gabapentin 300 Mg Cap PO 600 mg BID JULIANNE Administration Heparin Sodium (Porcine) 5,000 unit 12/26/20 22:00 12/28/20 09:59 Heparin 5,000 Unit/1 Ml Vial SUB-Q 5,000 unit Q12HR JULIANNE Administration Hydralazine HCl 10 mg 12/26/20 20:16 12/27/20 06:32 Hydralazine 20 Mg/1 Ml Inj IV 10 mg Q6HR PRN Administration Hypertension Hydromorphone HCl 0.5 mg 12/26/20 15:20 12/26/20 19:30 Hydromorphone 1 Mg/1 Ml Inj IV 0.5 mg Q3H PRN Administration Pain , Severe (7-10) Lisinopril 40 mg 12/27/20 10:00 12/28/20 09:59 Lisinopril 40 Mg Tab PO 40 mg QDAY JULIANNE Administration Metoprolol Succinate 50 mg 12/27/20 10:00 12/28/20 09:59 Metoprolol Succinate Xl 50 Mg Tab PO Not Given QDAY JULIANNE Ondansetron HCl 4 mg 12/26/20 15:20 Ondansetron 4 Mg/2 Ml Inj IV Q8H PRN Nausea And Vomiting Oxycodone/Acetaminophen 1 tab 12/26/20 15:20 12/28/20 10:16 Oxycodone /Acetaminophen 5-325mg Tab PO 1 tab Q6H PRN Administration Pain, Moderate (4-6) Pantoprazole Sodium 20 mg 12/27/20 10:00 12/28/20 09:57 Pantoprazole 20 Mg Tab PO 20 mg QDAY JULIANNE Administration Sodium Chloride 10 ml 12/26/20 22:00 12/28/20 10:00 Sodium Chloride 0.9% 10 Ml Flush Syringe IV 10 ml BID JULIANNE Administration Sodium Chloride 10 ml 12/26/20 15:20 Sodium Chloride 0.9% 10 Ml Flush Syringe IV PRN PRN LINE FLUSH Tamsulosin HCl 0.4 mg 12/27/20 10:00 12/28/20 09:57 Tamsulosin 0.4 Mg Cap PO 0.4 mg QDAY JULIANNE Administration
--- NOTE | 2020-12-28 17:58 | Magnetic Resonance Report ---
MRI CERVICAL SPINE WITHOUT CONTRAST INDICATION / CLINICAL INFORMATION: Recurrent falls. TECHNIQUE: Multisequence, multiplanar images of the cervical spine were obtained. COMPARISON: None available. FINDINGS: CRANIOCERVICAL JUNCTION:No significant abnormality; fluid accumulation in the lateral atlantoaxial melecio ints bilaterally and to a lesser degree in the atlantooccipital joints bilaterally ALIGNMENT: No significant abnormality. VERTEBRAE:Normal marrow signal and vertebral body height for age. Hardware from multilevel anterior c ervical disc fusion obscuring the details; no evidence of fracture or bone bruise in the cervical spi ne; no evidence of ligamentous injury in the cervical spine VISUALIZED SPINAL CORD: No significant abnormality. [id number] ANALYSIS: C2-3: Midline disc protrusion; moderate facet joint hypertrophic changes bilaterally; moderate to sev ere foraminal stenoses bilaterally C3-4: Anterior cervical disc fusion with hardware; normal neuroforamina C4-5: Anterior cervical disc fusion with hardware; neuroforamina are normal C5-6: Anterior cervical disc fusion with hardware; bony spur on the right side of midline; neuroforam lavinia are normal C6-7: Anterior cervical disc fusion; bony spur on the right side; moderate foraminal stenoses bilater ally C7-T1: Trace anterolisthesis; disc height loss; disc osteophyte complex extending bilaterally; mild t o moderate foraminal stenoses bilaterally PARASPINAL SOFT TISSUES: No significant abnormality. ADDITIONAL FINDINGS: None. IMPRESSION: Anterior cervical disc fusion at C3-C4, C4-C5, C5-C6 and C6-C7 disc levels C6-C7: Bony spur bilaterally; moderate foraminal stenoses bilaterally C2-C3: Midline disc protrusion; moderate facet joint hypertrophic changes; moderate to severe foramin al stenoses bilaterally Signer Name: Kacie Guerrero MD Signed: 12/28/2020 5:53 PM Workstation Name: [id number]
--- NOTE | 2020-12-29 08:43 | Discharge Summary ---
Providers - Providers Date of Admission: 12/26/20 15:20 Attending physician: JOHN ROBERTS MD 12/26/20 15:24 Consult to Case Management [CONS] Routine Services Needed at Discharge: Other Notified:: in am Additional Physician Instructions: SNF/Rehab Placement Physical Therapy Evaluation and Treat [CONS] Routine Comment: Reason For Exam: Debility/recurrent fall 12/27/20 11:01 Physical Therapy Evaluation and Treat [CONS] Urgent Comment: Reason For Exam: To determine mobility status 12/27/20 11:02 Occupational Therapy Evaluate and Treat [CONS] Urgent Comment: Reason For Exam: To determine ADL status 12/27/20 13:02 Consult to Physician [CONS] Routine Comment: Consulting Provider: STEVEN DURAN Physician Instructions: Reason For Exam: Fall, back pain, L -1 fracture Primary care physician: PRIVACY ANALYST Hospitalization Reason for admission: Back pain Condition: Stable Hospital course: 75 YO Male with Bladder Cancer, HTN, HLD, CAD S/P Stent Placement, BPH, OA, GERD, Obesity, Chronic Pain Syndrome presents to ED for evaluation. Patient reports "my back hurts so bad". Patient states that he has experienced severe low back pain over the past 1 week with persistent and worsening symptoms over the same timeframe. Patient states that symptoms began shortly after a fall 1 week ago. Patient has experienced multiple falls during the ensuing week. Patient said that pain is 10/10, constant, worsened with ambulation, relieved with rest. Radiates down the leg. Patient is currently bedbound, ev mbulatory, and unable to bear weight due to the pain. EMS was notified and upon arrival the patient was found to be in distress. Patient found to have a lumbar spine fracture. (1) lumbago with L1 vertebral fracture post fall 1 week ago Current Visit: Yes Status: Acute Qualifiers: Encounter type: subsequent encounter Fracture type: closed Fracture morphology: other fracture Plan to address problem: MRI, PT/OT evaluation and orthopedic consult ordered. Possible a candidate for vertebroplasty/kyphoplasty Continue current pain management (2) Obesity Current Visit: Yes Status: Acute Qualifiers: Body mass index: BMI 31.0-31.9 Plan to address problem: Balanced diet, increase physical activity at discharge, outpatient pulmonary follow-up as outpatient for sleep study. (3) history of CAD with stent Current Visit: Yes Status: Acute Plan to address problem: Clinically stable (4) History of bladder cancer, appears noninvasive Current Visit: Yes Status: Acute Plan to address problem: Being followed by urology (5) Hypertension Current Visit: Yes Status: Acute Qualifiers: Hypertension type: primary hypertension Qualified Code(s): I10 - Essential (primary) hypertension Plan to address problem: Monitor blood pressure every shift, continue medical management. (6) history of recurrent falls Patient reports losing balance/tripping causing falls. Recurrent but not very frequent. Fell twice during this month. PT/OT evaluation pending. Order MRI of lumbar spine. May need MRI of C-spine also. (7) GERD (gastroesophageal reflux disease) Current Visit: Yes Status: Acute Qualifiers: Esophagitis presence: without esophagitis Qualified Code(s): K21.9 - Gastro-esophageal reflux disease without esophagitis Plan to address problem: PPI therapy, supportive care (8) Chronic pain syndrome Current Visit: Yes Status: Acute Plan to address problem: Pain assessment as per routine, continue pain management as per protocol. Discussed with patient, nursing staff and case management manager 12/28: Patient reports having low back pain without much radiation. Still pain with movement. Patient denies no bladder or bowel dysfunction. Awaiting orthopedic consult ordered. MRI pending. Back brace ordered. Anticipate discharge in am if no further input by surgeon. MRI: IMPRESSION: 1. Prominent multilevel degenerative disc and facet changes as detailed above. 2. Soft tissue edema associated with the position of osteophyte linear lucency seen on CT scan from 12/26/2020. 12/29: Patient clinically stable today. I did realize that the patient has some pain medication at home which has been refilled for him. No obvious fracture is noted at this time even on the C-spine. There is some soft tissue edema noted which he will follow with outpatient orthopedic surgeon and also neurosurgeon for further evaluation is clinically stable to be discharged I discussed with case management to obtain back brace as recommended by PT. Disposition: 01 HOME / SELF CARE / HOMELESS Final Discharge Diagnosis (Prints w/discharge instructions): lumbago with L1 vertebral fracture post fall 1 week ago complicated by chronic pain syndrome Time spent for discharge: 35-minute Core Measure Documentation - Palliative Care Palliative Care/ Comfort Measures: Not Applicable - Core Measures Any of the following diagnoses?: none Exam - Physical Exam Narrative exam: General appearance: Present: no acute distress, obese - EENT Eyes: Present: PERRL, EOM intact ENT: hearing decreased - Neck Neck: Present: supple - Respiratory Respiratory effort: normal Respiratory: bilateral: CTA, diminished - Cardiovascular Rhythm: regular - Extremities Extremities: No edema Extremity abnormal: other (Tender over L1. Left straight leg raising test is improved.) - Abdominal General gastrointestinal: soft, non-tender - Integumentary Integumentary: Absent: rash - Psychiatric Psychiatric: appropriate mood/affect - Neurologic Neurologic: no focal deficits, other (Left straight leg raise test is improved) - Constitutional Vitals: Temp Pulse Resp BP Pulse Ox 98.2 F 61 18 129/56 95 12/29/20 05:43 12/29/20 05:43 12/29/20 05:43 12/29/20 05:43 12/29/20 05:43 Plan Activity: advance as tolerated, fall precautions Weight Bearing Status: Weight Bear as Tolerated Diet: low fat Special Instructions: record daily weights, record daily BP diary, other (back brace) Durable Medical Equipment Needed Upon Discharge: other (backbrace) Follow up with: PRIMARY MD RAEANN [Primary Care Provider] - 3-5 Days LEONEL SAWANT MD [Staff Physician] - 7 Days Prescriptions: HYDROcodone/APAP 10-325 [[place] 10-325 mg TAB] 1 each PO Q8HR PRN #10 tab PRN Reason: Pain
[2020-12-29] MEDS: GABAPENTIN 300 MG CAP PO SCH (10:23)
[2020-12-29] MEDS: PANTOPRAZOLE 20 MG TAB PO SCH (10:24)
[2020-12-29] MEDS: amLODIPine 5 MG TAB PO SCH (10:25)
[2020-12-29] MEDS: METOPROLOL SUCCINATE XL 50 MG TAB PO SCH (10:26)
[2020-12-29] MEDS: TAMSULOSIN 0.4 MG CAP PO SCH (10:26)
[2020-12-29] MEDS: oxyCODONE /ACETAMINOPHEN 5-325MG TAB PO PRN (10:27)
[2020-12-29] MEDS: HEPARIN 5,000 UNIT/1 ML VIAL SUB-Q SCH (10:31)
[2020-12-29] MEDS: LISINOPRIL 40 MG TAB PO SCH (10:32)
[2020-12-29] MEDS: FAMOTIDINE 20 MG TAB PO SCH (10:32)
[2020-12-29 17:23] VITALS: BP 135/61
--- NOTE | 2020-12-29 17:59 | Consultation ---
History of Present Illness - HPI Consult date: 12/29/20 History of present illness: ORTHO CONSULT ASSESSMENT : 1. Lumbar back pain cute on chronic multiple lumbar levels showing moderate to advanced changes consistent with degeneration ; 2. L4-5 canal stenosis secondary to disc changes as demonstrated on the MRI 3. History of previous surgery right hip as an adolescent. Recommendations: 1. Certainly do not think he needs to be in-house for any more treatment other than pain management; 2. Home health versus outpatient physical therapy for low back pain protocol x4 to 6 weeks. 3. Home modalities such as hamstring stretches, recumbent cycling, ice pack application, Arnica gel. 4. Follow-up in the orthopedic office in 2 to 3 weeks as needed 5. Consider pain management for epidural steroid injections Past History Past Medical History: arthritis, CAD, cancer, GERD, hypertension, hyperlipidemia Past Surgical History: total hip replacement, total knee replacement Social history: , lives with family. denies: smoking, alcohol abuse, prescription drug abuse Family history: diabetes, hypertension Medications and Allergies Allergies Allergy/AdvReac Type Severity Reaction Status Date / Time No Known Allergies Allergy Verified 12/26/20 12:59 Home Medications Medication Instructions Recorded Confirmed Last Taken Type Amlodipine Besylate [Norvasc] 10 mg PO QDAY 12/26/20 12/26/20 12/26/20 History AtorvaSTATin [Lipitor] 40 mg PO QHS 12/26/20 12/26/20 12/26/20 History Gabapentin [Neurontin] 600 mg PO BID 12/26/20 12/26/20 12/26/20 History Metoprolol Xl [Metoprolol 50 mg PO QDAY 12/26/20 12/26/20 12/26/20 History SUCCINATE ER TAB] Omeprazole Magnesium [PriLOSEC Otc] 20 mg PO QDAY 12/26/20 12/26/20 12/26/20 History Tamsulosin [Flomax] 0.4 mg PO QDAY 12/26/20 12/26/20 12/26/20 History lisinopriL [Zestril TAB] 40 mg PO QDAY 12/26/20 12/26/20 12/26/20 History HYDROcodone/APAP 10-325 [[place] 1 each PO Q8HR PRN #10 tab 12/29/20 Unknown Rx 10-325 mg TAB] Active Meds: Active Medications Acetaminophen (Acetaminophen 325 Mg Tab) 650 mg PO Q4H PRN PRN Reason: Pain MILD(1-3)/Fever >100.5/RAPHAEL Hydrocodone Bitart/Acetaminophen (Hydrocodone/Acetaminophen 10-325mg Tab) 1 each PO Q8HR PRN PRN Reason: PAIN Last Admin: 12/27/20 22:55 Dose: 1 each Documented by: Amlodipine Besylate (Amlodipine 5 Mg Tab) 10 mg PO QDAY [facility] Last Admin: 12/29/20 10:25 Dose: 10 mg Documented by: Atorvastatin Calcium (Atorvastatin 40 Mg Tab) 40 mg PO QHS [facility] Last Admin: 12/28/20 22:13 Dose: 40 mg Documented by: Famotidine (Famotidine 20 Mg Tab) 20 mg PO BID [facility] Last Admin: 12/29/20 10:32 Dose: 20 mg Documented by: Gabapentin (Gabapentin 300 Mg Cap) 600 mg PO BID [facility] Last Admin: 12/29/20 10:23 Dose: 600 mg Documented by: Heparin Sodium (Porcine) (Heparin 5,000 Unit/1 Ml Vial) 5,000 unit SUB-Q Q12HR [facility] Last Admin: 12/29/20 10:31 Dose: 5,000 unit Documented by: Hydralazine HCl (Hydralazine 20 Mg/1 Ml Inj) 10 mg IV Q6HR PRN PRN Reason: Hypertension Last Admin: 12/27/20 06:32 Dose: 10 mg Documented by: Hydromorphone HCl (Hydromorphone 1 Mg/1 Ml Inj) 0.5 mg IV Q3H PRN PRN Reason: Pain , Severe (7-10) Last Admin: 12/26/20 19:30 Dose: 0.5 mg Documented by: Lisinopril (Lisinopril 40 Mg Tab) 40 mg PO QDAY [facility] Last Admin: 12/29/20 10:32 Dose: 40 mg Documented by: Metoprolol Succinate (Metoprolol Succinate Xl 50 Mg Tab) 50 mg PO QDAY [facility] Last Admin: 12/29/20 10:26 Dose: 50 mg Documented by: Ondansetron HCl (Ondansetron 4 Mg/2 Ml Inj) 4 mg IV Q8H PRN PRN Reason: Nausea And Vomiting Oxycodone/Acetaminophen (Oxycodone /Acetaminophen 5-325mg Tab) 1 tab PO Q6H PRN PRN Reason: Pain, Moderate (4-6) Last Admin: 12/29/20 10:27 Dose: 1 tab Documented by: Pantoprazole Sodium (Pantoprazole 20 Mg Tab) 20 mg PO QDAY [facility] Last Admin: 12/29/20 10:24 Dose: 20 mg Documented by: Sodium Chloride (Sodium Chloride 0.9% 10 Ml Flush Syringe) 10 ml IV BID [facility] Last Admin: 12/29/20 10:36 Dose: 10 ml Documented by: Sodium Chloride (Sodium Chloride 0.9% 10 Ml Flush Syringe) 10 ml IV PRN PRN PRN Reason: LINE FLUSH Tamsulosin HCl (Tamsulosin 0.4 Mg Cap) 0.4 mg PO QDAY [facility] Last Admin: 12/29/20 10:26 Dose: 0.4 mg Documented by:
== END 2020-12-29 18:11 | disposition home health service (06) | DRG 552 ==
LOC: ED 12:45 → 3A 15:20
PROVIDERS: ADMIT Internal Medicine; ATTEND Internal Medicine
DX: S32.019A Unspecified fracture of first lumbar vertebra, initial encounter for closed fracture (principal); E66.9 Obesity, unspecified; G89.4 Chronic pain syndrome; W18.39XA Other fall on same level, initial encounter; I10 Essential (primary) hypertension; I25.10 Atherosclerotic heart disease of native coronary artery without angina pectoris; K21.9 Gastro-esophageal reflux disease without esophagitis; N40.0 Benign prostatic hyperplasia without lower urinary tract symptoms; E78.5 Hyperlipidemia, unspecified; M19.90 Unspecified osteoarthritis, unspecified site; Z95.5 Presence of coronary angioplasty implant and graft; Y93.89 Activity, other specified; Y92.89 Other specified places as the place of occurrence of the external cause; Y99.8 Other external cause status; Z68.31 Body mass index [BMI] 31.0-31.9, adult; Z83.3 Family history of diabetes mellitus; Z82.49 Family history of ischemic heart disease and other diseases of the circulatory system; Z20.822 Contact with and (suspected) exposure to COVID-19
CPT/HCPCS: 36415; 70450; 72131; 72141; 72158; 72192; 80048; 80053; 81001; 82550; 85025; 94760; G0378; A9575; J0360; J1170; J1644; J1885; J2405